=== PATIENT | female | born 1930 | race Caucasian/White ===

== ENCOUNTER 2018-02-10 19:43 | Inpatient (IN) | payer MEDICARE, OTHER ==
[2018-02-10] MEDS: LACTATED RINGER'S 1,000 ML IV (21:38)
[2018-02-10 21:41] LABS: ADD MAN DIFF? NO
[2018-02-10 21:43] LABS: BASOPHIL # 0.1 10^3/ul (0.0-0.1); BASOPHILS % 0.4 % (0.0-2.0); EOSINOPHILS % 0.2 % (0.0-7.0); HEMATOCRIT 38.2 % (37.0-47.0); HEMOGLOBIN 12.2 g/dl (12.0-16.0); LYMPHOCYTES # 1.9 10^3/ul (0.8-2.9); LYMPHOCYTES % 12.9 % (15.0-51.0); MEAN CORPUSCULAR HGB CONC 31.9 g/dl (32.0-37.0); MEAN PLATELET VOLUME 10.5 fl (7.4-10.4); MONOCYTES % 7.1 % (0.0-11.0); NEUTROPHIL # 11.4 10^3/ul (1.6-7.5); NEUTROPHILS % 78.8 % (39.0-77.0); PLATELET COUNT 352 10^3/UL (140-415); RED CELL DISTRIBUTION WIDTH 13.3 % (11.5-14.5)
[2018-02-10 21:43] LABS: WHITE BLOOD COUNT 14.5 10^3/ul (4.8-10.8)
[2018-02-10 21:47] LABS: INR 0.98; PARTIAL THROMBOPLASTIN TIME 26.1 Sec (25.0-35.0); PROTIME 13.1 Sec (11.9-14.9)
[2018-02-10 21:50] LABS: ALANINE AMINOTRANSFERASE 19 IU/L (13-69); ALBUMIN 3.5 g/dl (3.3-4.9); ALBUMIN/GLOBULIN RATIO 0.94; ALKALINE PHOSPHATASE 104 IU/L (42-121); ANION GAP 17 (8-16); ASPARTATE AMINO TRANSFERASE 31 IU/L (15-46); BILIRUBIN,INDIRECT 0.1 mg/dl (0-1.1); BILIRUBIN,TOTAL 0.1 mg/dl (0.2-1.3); BLOOD UREA NITROGEN 78 mg/dl (7-20); CALCIUM 9.6 mg/dl (8.4-10.2); CARBON DIOXIDE 29 mmol/L (21-31); CHLORIDE 102 mmol/L (97-110); CREATININE 2.54 mg/dl (0.44-1.00); GLUCOSE 142 mg/dl (70-220); LIPASE 159 U/L (23-300); POTASSIUM 3.6 mmol/L (3.5-5.1); SODIUM 144 mmol/L (135-144); TOTAL PROTEIN 7.2 g/dl (6.1-8.1)
[2018-02-10 22:21] LABS: ADD UMIC YES; UR ASCORBIC ACID NEGATIVE (NEGATIVE); UR BACTERIA FEW /HPF (NONE SEEN); UR BILIRUBIN (Dip) NEGATIVE (NEGATIVE); UR BLOOD (Dip) 2+ mg/dL (NEGATIVE); UR CLARITY CLOUDY (CLEAR); UR COLOR YELLOW (YELLOW); UR GLUCOSE (Dip) NEGATIVE (NEGATIVE); UR KETONES (Dip) NEGATIVE (NEGATIVE); UR LEUKOCYTE ESTERASE (Dip) 3+ Leu/ul (NEGATIVE); UR NITRITE (Dip) NEGATIVE (NEGATIVE); UR NONSQUAMOUS EPITHELIAL CELL 5 /HPF (NONE SEEN); UR RBC 2 /HPF (0-5); UR SPECIFIC GRAVITY (Dip) 1.015 (1.003-1.030); UR SQUAMOUS EPITHELIAL CELL FEW /HPF (FEW); UR TOTAL PROTEIN (Dip) 2+ mg/dl (NEGATIVE); UR UROBILINOGEN (Dip) NEGATIVE (NEGATIVE); UR WBC > 182 /HPF (0-5)
[2018-02-10] MEDS: SOD CHLORIDE 0.9% 1,000 ML IV (22:45)
[2018-02-10] MEDS: CEFEPIME 1GM/50 ML (PMX) 50 ML IVPB (22:45)
[2018-02-11 11:18] LABS: ADD MAN DIFF? NO
[2018-02-11 11:27] LABS: BASOPHILS % 0.3 % (0.0-2.0); EOSINOPHILS % 0.2 % (0.0-7.0); HEMATOCRIT 33.4 % (37.0-47.0); HEMOGLOBIN 10.5 g/dl (12.0-16.0); LYMPHOCYTES # 1.4 10^3/ul (0.8-2.9); MEAN CORPUSCULAR HEMOGLOBIN 28.8 pg (29.0-33.0); MEAN CORPUSCULAR HGB CONC 31.4 g/dl (32.0-37.0); MEAN CORPUSCULAR VOLUME 91.8 fl (82.0-101.0); MEAN PLATELET VOLUME 9.4 fl (7.4-10.4); MONOCYTE # 0.8 10^3/ul (0.3-0.9); MONOCYTES % 6.7 % (0.0-11.0); NEUTROPHILS % 81.2 % (39.0-77.0); PLATELET COUNT 287 10^3/UL (140-415); RED BLOOD COUNT 3.64 10^6/ul (4.20-5.40); RED CELL DISTRIBUTION WIDTH 13.3 % (11.5-14.5)
[2018-02-11 11:27] LABS: WHITE BLOOD COUNT 12.3 10^3/ul (4.8-10.8)
[2018-02-11 11:45] LABS: ANION GAP 17 (8-16); BLOOD UREA NITROGEN 69 mg/dl (7-20); CALCIUM 9.2 mg/dl (8.4-10.2); CARBON DIOXIDE 27 mmol/L (21-31); CHLORIDE 107 mmol/L (97-110); CREATININE 2.04 mg/dl (0.44-1.00); GLUCOSE 96 mg/dl (70-220); SODIUM 148 mmol/L (135-144)
[2018-02-11 11:47] LABS: CREATINE KINASE 23 IU/L (23-200)
[2018-02-11 11:55] LABS: POTASSIUM 2.9 mmol/L (3.5-5.1)
[2018-02-11 11:57] LABS: CK INDEX 18.7; CK-MB 4.31 ng/ml (0.0-2.4)
[2018-02-11 11:59] LABS: TROPONIN-I 0.258 ng/ml (0.000-0.120)
[2018-02-11] MEDS: POTASSIUM CHLORIDE (SR) 20 MEQ TAB PO (12:02)
[2018-02-11] MEDS: DEXTROSE 5%-0.45% NACL 1,000 ML IV ×2 (12:02→16:50)
[2018-02-11] MEDS: CEFTRIAXONE 1 GM/NS 50 ML IVPB (12:03)
[2018-02-11] MEDS: METOPROLOL 5 MG INJ IV (12:28)
[2018-02-11] MEDS: DILTIAZEM-D5W 125MG/125ML DRIP 125 ML IV (13:40)
[2018-02-11] MEDS: POTASSIUM CHLORIDE 50 ML IVPB ×2 (14:48→16:35)
[2018-02-11] MEDS ORDERED: ACETAMINOPHEN 650 MG SUPP PR (17:00)
[2018-02-11] MEDS ORDERED: MAGNESIUM HYDROXIDE 30ML CUP PO ×2 (17:00)
[2018-02-11] MEDS ORDERED: ACETAMINOPHEN 325 MG TAB PO ×2 (17:00)
[2018-02-11] MEDS ORDERED: DOCUSATE SODIUM 100 MG CAP PO (17:00)
[2018-02-11] MEDS ORDERED: NACL 0.9% 3 ML SYG IV (17:00)
[2018-02-11] MEDS: DOCUSATE SODIUM 100 MG CAP PO (21:05)
[2018-02-11] MEDS: METOPROLOL 25 MG TAB PO (21:06)
[2018-02-11] MEDS: PEG/ELECTROLYTES 4L BTL PO (21:11)
[2018-02-12 05:16] LABS: ADD MAN DIFF? NO
[2018-02-12 05:23] LABS: WHITE BLOOD COUNT 12.2 10^3/ul (4.8-10.8)
[2018-02-12 05:23] LABS: BASOPHILS % 0.3 % (0.0-2.0); EOSINOPHILS # 0.1 10^3/ul (0.0-0.5); EOSINOPHILS % 0.4 % (0.0-7.0); HEMATOCRIT 30.5 % (37.0-47.0); HEMOGLOBIN 9.5 g/dl (12.0-16.0); LYMPHOCYTES # 1.5 10^3/ul (0.8-2.9); LYMPHOCYTES % 12.3 % (15.0-51.0); MEAN CORPUSCULAR HEMOGLOBIN 28.9 pg (29.0-33.0); MEAN CORPUSCULAR HGB CONC 31.1 g/dl (32.0-37.0); MEAN CORPUSCULAR VOLUME 92.7 fl (82.0-101.0); MEAN PLATELET VOLUME 9.8 fl (7.4-10.4); MONOCYTE # 0.9 10^3/ul (0.3-0.9); MONOCYTES % 7.1 % (0.0-11.0); NEUTROPHIL # 9.6 10^3/ul (1.6-7.5); NEUTROPHILS % 79.1 % (39.0-77.0); PLATELET COUNT 261 10^3/UL (140-415); RED BLOOD COUNT 3.29 10^6/ul (4.20-5.40); RED CELL DISTRIBUTION WIDTH 13.6 % (11.5-14.5)
[2018-02-12] MEDS: DEXTROSE 5%-0.45% NACL 1,000 ML IV ×2 (05:30→23:51)
[2018-02-12 05:34] LABS: HEMOGLOBIN A1C 6.7 % (0-5.9)
[2018-02-12 05:52] LABS: ALANINE AMINOTRANSFERASE 18 IU/L (13-69); ALBUMIN 2.7 g/dl (3.3-4.9); ALBUMIN/GLOBULIN RATIO 0.87; ALKALINE PHOSPHATASE 75 IU/L (42-121); ANION GAP 11 (8-16); ASPARTATE AMINO TRANSFERASE 25 IU/L (15-46); BILIRUBIN,INDIRECT 0.1 mg/dl (0-1.1); BILIRUBIN,TOTAL 0.1 mg/dl (0.2-1.3); BLOOD UREA NITROGEN 60 mg/dl (7-20); CALCIUM 8.8 mg/dl (8.4-10.2); CARBON DIOXIDE 26 mmol/L (21-31); CHLORIDE 113 mmol/L (97-110); CREATININE 1.51 mg/dl (0.44-1.00); GLUCOSE 168 mg/dl (70-220); POTASSIUM 3.9 mmol/L (3.5-5.1); SODIUM 146 mmol/L (135-144); TOTAL PROTEIN 5.8 g/dl (6.1-8.1)
[2018-02-12] MEDS: LEVOTHYROXINE 25 MCG TAB PO (06:03)
[2018-02-12] MEDS ORDERED: CEFTRIAXONE 1 GM INJ IM (09:00)
[2018-02-12] MEDS: DOCUSATE SODIUM 100 MG CAP PO ×2 (09:19→20:55)
[2018-02-12] MEDS: MULTIVITAMINS THERAPEUTIC TAB PO (09:19)
[2018-02-12] MEDS: PANTOPRAZOLE 40 MG INJ IV (09:19)
[2018-02-12] MEDS: AMLODIPINE 5 MG TAB PO (09:19)
[2018-02-12] MEDS: METOPROLOL 25 MG TAB PO ×2 (09:20→20:55)
[2018-02-12] MEDS: CEFTRIAXONE 1 GM/NS 50 ML IVPB (12:01)
[2018-02-12] MEDS: DILTIAZEM-D5W 125MG/125ML DRIP 125 ML IV (15:47)
[2018-02-12] MEDS: BISACODYL (EC) 5 MG TAB PO (17:34)
[2018-02-13 04:56] LABS: ADD MAN DIFF? NO
[2018-02-13 05:07] LABS: WHITE BLOOD COUNT 12.8 10^3/ul (4.8-10.8)
[2018-02-13 05:07] LABS: BASOPHIL # 0.1 10^3/ul (0.0-0.1); BASOPHILS % 0.4 % (0.0-2.0); EOSINOPHILS # 0.1 10^3/ul (0.0-0.5); EOSINOPHILS % 0.6 % (0.0-7.0); HEMATOCRIT 28.6 % (37.0-47.0); HEMOGLOBIN 9.2 g/dl (12.0-16.0); LYMPHOCYTES # 1.5 10^3/ul (0.8-2.9); LYMPHOCYTES % 11.3 % (15.0-51.0); MEAN CORPUSCULAR HEMOGLOBIN 29.2 pg (29.0-33.0); MEAN CORPUSCULAR HGB CONC 32.2 g/dl (32.0-37.0); MEAN CORPUSCULAR VOLUME 90.8 fl (82.0-101.0); MEAN PLATELET VOLUME 9.9 fl (7.4-10.4); MONOCYTE # 0.9 10^3/ul (0.3-0.9); MONOCYTES % 6.9 % (0.0-11.0); NEUTROPHIL # 10.3 10^3/ul (1.6-7.5); NEUTROPHILS % 80.3 % (39.0-77.0); PLATELET COUNT 254 10^3/UL (140-415); RED BLOOD COUNT 3.15 10^6/ul (4.20-5.40); RED CELL DISTRIBUTION WIDTH 13.7 % (11.5-14.5)
[2018-02-13 05:24] LABS: MAGNESIUM 1.9 mg/dl (1.7-2.5)
[2018-02-13 05:24] LABS: PHOSPHORUS 2.4 mg/dl (2.5-4.9)
[2018-02-13 05:26] LABS: ANION GAP 13 (8-16); BLOOD UREA NITROGEN 44 mg/dl (7-20); CALCIUM 8.7 mg/dl (8.4-10.2); CARBON DIOXIDE 23 mmol/L (21-31); CHLORIDE 113 mmol/L (97-110); CREATININE 1.16 mg/dl (0.44-1.00); GLUCOSE 162 mg/dl (70-220); SODIUM 146 mmol/L (135-144)
[2018-02-13 05:33] LABS: POTASSIUM 2.8 mmol/L (3.5-5.1)
[2018-02-13] MEDS: PANTOPRAZOLE 40 MG INJ IV (06:10)
[2018-02-13] MEDS: POTASSIUM CHLORIDE 100 ML IVPB ×2 (06:48→08:52)
[2018-02-13] MEDS: LEVOTHYROXINE 25 MCG TAB PO (07:00)
[2018-02-13] MEDS: DOCUSATE SODIUM 100 MG CAP PO ×2 (08:25→22:35)
[2018-02-13] MEDS: METOPROLOL 25 MG TAB PO ×2 (08:26→22:35)
[2018-02-13] MEDS: MULTIVITAMINS THERAPEUTIC TAB PO (08:26)
[2018-02-13 11:10] LABS: POTASSIUM 3.9 mmol/L (3.5-5.1)
[2018-02-13] MEDS: PROPOFOL 20 ML (11:30)
[2018-02-13] MEDS: PHENYLephrine (100 MCG/ML) 5ML SYG (11:30)
[2018-02-13] MEDS: CEFTRIAXONE 1 GM/NS 50 ML IVPB (11:41)
[2018-02-13] MEDS: SOD PHOS MONO/DIBAS 250 MG TAB PO (12:52)
[2018-02-13] MEDS ORDERED: METOPROLOL 5 MG INJ IV (13:30)
[2018-02-13] MEDS: DEXTROSE 5%-0.45% NACL 1,000 ML IV (18:45)
[2018-02-14] MEDS: LEVOTHYROXINE 25 MCG TAB PO (06:42)
[2018-02-14 06:48] LABS: ADD MAN DIFF? NO
[2018-02-14 07:04] LABS: BASOPHILS % 0.4 % (0.0-2.0); EOSINOPHILS # 0.1 10^3/ul (0.0-0.5); EOSINOPHILS % 1.3 % (0.0-7.0); HEMATOCRIT 27.8 % (37.0-47.0); HEMOGLOBIN 8.7 g/dl (12.0-16.0); LYMPHOCYTES # 1.4 10^3/ul (0.8-2.9); LYMPHOCYTES % 15.5 % (15.0-51.0); MEAN CORPUSCULAR HEMOGLOBIN 29.3 pg (29.0-33.0); MEAN CORPUSCULAR HGB CONC 31.3 g/dl (32.0-37.0); MEAN CORPUSCULAR VOLUME 93.6 fl (82.0-101.0); MEAN PLATELET VOLUME 9.8 fl (7.4-10.4); MONOCYTE # 0.7 10^3/ul (0.3-0.9); NEUTROPHIL # 6.6 10^3/ul (1.6-7.5); NEUTROPHILS % 74.1 % (39.0-77.0); PLATELET COUNT 206 10^3/UL (140-415); RED BLOOD COUNT 2.97 10^6/ul (4.20-5.40)
[2018-02-14 07:04] LABS: WHITE BLOOD COUNT 8.9 10^3/ul (4.8-10.8)
[2018-02-14 07:37] LABS: PHOSPHORUS 2.5 mg/dl (2.5-4.9)
[2018-02-14 07:37] LABS: MAGNESIUM 1.8 mg/dl (1.7-2.5)
[2018-02-14 07:44] LABS: ANION GAP 8 (8-16); BLOOD UREA NITROGEN 30 mg/dl (7-20); CALCIUM 8.5 mg/dl (8.4-10.2); CARBON DIOXIDE 25 mmol/L (21-31); CHLORIDE 113 mmol/L (97-110); CREATININE 0.95 mg/dl (0.44-1.00); GLUCOSE 126 mg/dl (70-220); POTASSIUM 3.1 mmol/L (3.5-5.1); SODIUM 143 mmol/L (135-144)
[2018-02-14] MEDS: DOCUSATE SODIUM 100 MG CAP PO ×2 (08:06→20:41)
[2018-02-14] MEDS: METOPROLOL 25 MG TAB PO ×2 (08:06→20:45)
[2018-02-14] MEDS: MULTIVITAMINS THERAPEUTIC TAB PO (08:06)
[2018-02-14] MEDS: PANTOPRAZOLE 40 MG INJ IV (09:19)
[2018-02-14] MEDS: REGADENOSON 0.4 MG/5 ML SYG (11:48)
[2018-02-14] MEDS: BISACODYL 10 MG SUPP PR (12:33)
[2018-02-14] MEDS: POTASSIUM CHLORIDE (SR) 20 MEQ TAB PO (12:40)
[2018-02-14] MEDS: CEFTRIAXONE 1 GM/NS 50 ML IVPB (12:40)
[2018-02-14] MEDS: DEXTROSE 5%-0.45% NACL 1,000 ML IV (12:44)
[2018-02-14] MEDS: LUBIPROSTONE 24 MCG CAP PO (20:41)
[2018-02-15] MEDS: LEVOTHYROXINE 25 MCG TAB PO (05:25)
[2018-02-15] MEDS: PANTOPRAZOLE 40 MG INJ IV (05:25)
[2018-02-15 06:34] LABS: ADD MAN DIFF? NO
[2018-02-15 06:37] LABS: BASOPHILS % 0.3 % (0.0-2.0); EOSINOPHILS # 0.1 10^3/ul (0.0-0.5); EOSINOPHILS % 1.2 % (0.0-7.0); HEMATOCRIT 29.1 % (37.0-47.0); HEMOGLOBIN 8.9 g/dl (12.0-16.0); LYMPHOCYTES # 1.4 10^3/ul (0.8-2.9); LYMPHOCYTES % 15.3 % (15.0-51.0); MEAN CORPUSCULAR HEMOGLOBIN 28.8 pg (29.0-33.0); MEAN CORPUSCULAR HGB CONC 30.6 g/dl (32.0-37.0); MEAN CORPUSCULAR VOLUME 94.2 fl (82.0-101.0); MEAN PLATELET VOLUME 9.7 fl (7.4-10.4); MONOCYTE # 0.6 10^3/ul (0.3-0.9); MONOCYTES % 6.7 % (0.0-11.0); NEUTROPHIL # 6.8 10^3/ul (1.6-7.5); NEUTROPHILS % 75.7 % (39.0-77.0); PLATELET COUNT 196 10^3/UL (140-415); RED BLOOD COUNT 3.09 10^6/ul (4.20-5.40); RED CELL DISTRIBUTION WIDTH 14.2 % (11.5-14.5)
[2018-02-15 07:03] LABS: PHOSPHORUS 2.7 mg/dl (2.5-4.9)
[2018-02-15 07:03] LABS: MAGNESIUM 1.7 mg/dl (1.7-2.5)
[2018-02-15 07:07] LABS: ANION GAP 8 (8-16); BLOOD UREA NITROGEN 26 mg/dl (7-20); CALCIUM 8.5 mg/dl (8.4-10.2); CARBON DIOXIDE 25 mmol/L (21-31); CHLORIDE 113 mmol/L (97-110); CREATININE 1.05 mg/dl (0.44-1.00); GLUCOSE 107 mg/dl (70-220); POTASSIUM 4.1 mmol/L (3.5-5.1); SODIUM 142 mmol/L (135-144)
[2018-02-15] MEDS: MULTIVITAMINS THERAPEUTIC TAB PO (08:19)
[2018-02-15] MEDS: LUBIPROSTONE 24 MCG CAP PO ×2 (08:19→20:45)
[2018-02-15] MEDS: DOCUSATE SODIUM 100 MG CAP PO ×2 (08:19→20:45)
[2018-02-15] MEDS: METOPROLOL 25 MG TAB PO ×2 (08:19→20:46)
[2018-02-15] MEDS: POLYETHYLENE GLYCOL 17 GM PACKET PO (08:21)
[2018-02-15] MEDS: CEFTRIAXONE 1 GM/NS 50 ML IVPB (11:22)
[2018-02-16] MEDS: LEVOTHYROXINE 25 MCG TAB PO (06:09)
[2018-02-16] MEDS: PANTOPRAZOLE 40 MG INJ IV (06:09)
[2018-02-16 06:10] LABS: ADD MAN DIFF? NO
[2018-02-16 06:17] LABS: BASOPHILS % 0.4 % (0.0-2.0); EOSINOPHILS # 0.1 10^3/ul (0.0-0.5); EOSINOPHILS % 1.2 % (0.0-7.0); HEMATOCRIT 27.5 % (37.0-47.0); HEMOGLOBIN 8.6 g/dl (12.0-16.0); LYMPHOCYTES # 1.6 10^3/ul (0.8-2.9); LYMPHOCYTES % 16.8 % (15.0-51.0); MEAN CORPUSCULAR HEMOGLOBIN 28.9 pg (29.0-33.0); MEAN CORPUSCULAR HGB CONC 31.3 g/dl (32.0-37.0); MEAN CORPUSCULAR VOLUME 92.3 fl (82.0-101.0); MEAN PLATELET VOLUME 10.1 fl (7.4-10.4); MONOCYTE # 0.6 10^3/ul (0.3-0.9); MONOCYTES % 6.5 % (0.0-11.0); NEUTROPHIL # 7.1 10^3/ul (1.6-7.5); NEUTROPHILS % 74.6 % (39.0-77.0); PLATELET COUNT 188 10^3/UL (140-415); RED BLOOD COUNT 2.98 10^6/ul (4.20-5.40); RED CELL DISTRIBUTION WIDTH 14.4 % (11.5-14.5)
[2018-02-16 06:17] LABS: WHITE BLOOD COUNT 9.5 10^3/ul (4.8-10.8)
[2018-02-16] MEDS: DOCUSATE SODIUM 100 MG CAP PO ×2 (08:53→21:19)
[2018-02-16] MEDS: METOPROLOL (XL) 25 MG TAB PO ×2 (08:53→21:19)
[2018-02-16] MEDS: MULTIVITAMINS THERAPEUTIC TAB PO (08:53)
[2018-02-16] MEDS: LUBIPROSTONE 24 MCG CAP PO ×2 (08:53→21:19)
[2018-02-16] MEDS: POLYETHYLENE GLYCOL 17 GM PACKET PO (08:54)
[2018-02-16] MEDS: CEFTRIAXONE 1 GM/NS 50 ML IVPB (11:48)
[2018-02-16] MEDS ORDERED: VITAMIN A & D 5 GM OINT PACKET TOP (22:40)
[2018-02-17] MEDS: PANTOPRAZOLE 40 MG INJ IV (06:08)
[2018-02-17] MEDS: LEVOTHYROXINE 25 MCG TAB PO (06:08)
[2018-02-17 07:19] LABS: CANCER ANTIGEN 125 20.3 U/ml (0.0-35.0)
[2018-02-17 07:23] LABS: CANCER ANTIGEN 19-9 15.7 U/ml (0.0-37.0)
[2018-02-17] MEDS: DOCUSATE SODIUM 100 MG CAP PO ×2 (08:48→21:35)
[2018-02-17] MEDS: MULTIVITAMINS THERAPEUTIC TAB PO (08:48)
[2018-02-17] MEDS: LUBIPROSTONE 24 MCG CAP PO ×2 (08:48→21:35)
[2018-02-17] MEDS: POLYETHYLENE GLYCOL 17 GM PACKET PO (08:50)
[2018-02-17] MEDS: METOPROLOL (XL) 25 MG TAB PO ×2 (08:50→21:36)
[2018-02-17] MEDS: CEFTRIAXONE 1 GM/NS 50 ML IVPB (13:00)
[2018-02-17 13:18] LABS: ADD UMIC YES; UR ASCORBIC ACID 20 mg/dL (NEGATIVE); UR BACTERIA FEW /HPF (NONE SEEN); UR BILIRUBIN (Dip) NEGATIVE (NEGATIVE); UR BLOOD (Dip) NEGATIVE (NEGATIVE); UR CLARITY CLOUDY (CLEAR); UR COLOR YELLOW (YELLOW); UR GLUCOSE (Dip) NEGATIVE (NEGATIVE); UR HYPHAE YEAST MANY /HPF (NONE SEEN); UR KETONES (Dip) NEGATIVE (NEGATIVE); UR LEUKOCYTE ESTERASE (Dip) 2+ Leu/ul (NEGATIVE); UR MUCUS FEW /HPF (NONE SEEN); UR NITRITE (Dip) NEGATIVE (NEGATIVE); UR RBC 10 /HPF (0-5); UR SPECIFIC GRAVITY (Dip) 1.015 (1.003-1.030); UR TOTAL PROTEIN (Dip) 1+ mg/dl (NEGATIVE); UR UROBILINOGEN (Dip) NEGATIVE (NEGATIVE); UR WBC 41 /HPF (0-5)
[2018-02-17 14:36] LABS: CARCINOEMBRYONIC ANTIGEN 5.6 ng/ml (0.0-5.0)
[2018-02-17] MEDS: ASPIRIN 325 MG TAB PO (17:35)
[2018-02-18 05:16] LABS: ADD MAN DIFF? NO
[2018-02-18 05:19] LABS: BASOPHILS % 0.4 % (0.0-2.0); EOSINOPHILS # 0.1 10^3/ul (0.0-0.5); EOSINOPHILS % 1.3 % (0.0-7.0); HEMOGLOBIN 8.1 g/dl (12.0-16.0); LYMPHOCYTES # 1.3 10^3/ul (0.8-2.9); LYMPHOCYTES % 12.1 % (15.0-51.0); MEAN CORPUSCULAR HEMOGLOBIN 28.8 pg (29.0-33.0); MEAN CORPUSCULAR HGB CONC 31.2 g/dl (32.0-37.0); MEAN CORPUSCULAR VOLUME 92.5 fl (82.0-101.0); MONOCYTE # 0.8 10^3/ul (0.3-0.9); MONOCYTES % 7.8 % (0.0-11.0); NEUTROPHIL # 8.3 10^3/ul (1.6-7.5); NEUTROPHILS % 77.9 % (39.0-77.0); PLATELET COUNT 180 10^3/UL (140-415); RED BLOOD COUNT 2.81 10^6/ul (4.20-5.40); RED CELL DISTRIBUTION WIDTH 14.4 % (11.5-14.5)
[2018-02-18 05:19] LABS: WHITE BLOOD COUNT 10.6 10^3/ul (4.8-10.8)
[2018-02-18 05:45] LABS: ANION GAP 6 (8-16); BLOOD UREA NITROGEN 19 mg/dl (7-20); CALCIUM 8.3 mg/dl (8.4-10.2); CARBON DIOXIDE 28 mmol/L (21-31); CHLORIDE 111 mmol/L (97-110); CREATININE 0.82 mg/dl (0.44-1.00); GLUCOSE 100 mg/dl (70-220); POTASSIUM 3.8 mmol/L (3.5-5.1); SODIUM 141 mmol/L (135-144)
[2018-02-18] MEDS: PANTOPRAZOLE 40 MG INJ IV (06:06)
[2018-02-18] MEDS: LEVOTHYROXINE 25 MCG TAB PO (06:06)
[2018-02-18] MEDS: LUBIPROSTONE 24 MCG CAP PO ×2 (10:10→21:09)
[2018-02-18] MEDS: POLYETHYLENE GLYCOL 17 GM PACKET PO (10:11)
[2018-02-18] MEDS: METOPROLOL (XL) 25 MG TAB PO ×2 (10:11→21:10)
[2018-02-18] MEDS: DOCUSATE SODIUM 100 MG CAP PO ×2 (10:11→21:09)
[2018-02-18] MEDS: MULTIVITAMINS THERAPEUTIC TAB PO (10:11)
[2018-02-18] MEDS: ASPIRIN 325 MG TAB PO (10:11)
[2018-02-18] MEDS: CEFTRIAXONE 1 GM/NS 50 ML IVPB (12:50)
[2018-02-19] MEDS: LEVOTHYROXINE 25 MCG TAB PO (06:04)
[2018-02-19] MEDS: PANTOPRAZOLE 40 MG INJ IV (06:04)
[2018-02-19] MEDS: MULTIVITAMINS THERAPEUTIC TAB PO (09:12)
[2018-02-19] MEDS: DOCUSATE SODIUM 100 MG CAP PO ×2 (09:12→21:41)
[2018-02-19] MEDS: LUBIPROSTONE 24 MCG CAP PO ×2 (09:12→21:41)
[2018-02-19] MEDS: ASPIRIN 325 MG TAB PO (09:13)
[2018-02-19] MEDS: POLYETHYLENE GLYCOL 17 GM PACKET PO (09:13)
[2018-02-19] MEDS: METOPROLOL (XL) 25 MG TAB PO ×2 (09:13→21:41)
[2018-02-19] MEDS: CEFTRIAXONE 1 GM/NS 50 ML IVPB (12:04)
[2018-02-19 16:18] LABS: ADD MAN DIFF? NO
[2018-02-19 16:19] LABS: WHITE BLOOD COUNT 8.4 10^3/ul (4.8-10.8)
[2018-02-19 16:19] LABS: BASOPHILS % 0.4 % (0.0-2.0); EOSINOPHILS # 0.1 10^3/ul (0.0-0.5); EOSINOPHILS % 1.2 % (0.0-7.0); HEMATOCRIT 25.2 % (37.0-47.0); HEMOGLOBIN 7.8 g/dl (12.0-16.0); LYMPHOCYTES # 1.4 10^3/ul (0.8-2.9); LYMPHOCYTES % 16.7 % (15.0-51.0); MEAN CORPUSCULAR HEMOGLOBIN 28.7 pg (29.0-33.0); MEAN CORPUSCULAR VOLUME 92.6 fl (82.0-101.0); MEAN PLATELET VOLUME 10.1 fl (7.4-10.4); MONOCYTE # 0.7 10^3/ul (0.3-0.9); NEUTROPHIL # 6.1 10^3/ul (1.6-7.5); NEUTROPHILS % 72.7 % (39.0-77.0); PLATELET COUNT 187 10^3/UL (140-415); RED BLOOD COUNT 2.72 10^6/ul (4.20-5.40); RED CELL DISTRIBUTION WIDTH 14.6 % (11.5-14.5)
[2018-02-20] MEDS: LEVOTHYROXINE 25 MCG TAB PO (06:31)
[2018-02-20] MEDS: PANTOPRAZOLE 40 MG INJ IV ×2 (06:31→21:22)
[2018-02-20] MEDS: DOCUSATE SODIUM 100 MG CAP PO ×2 (09:12→21:22)
[2018-02-20] MEDS: ASPIRIN 325 MG TAB PO (09:12)
[2018-02-20] MEDS: MULTIVITAMINS THERAPEUTIC TAB PO (09:12)
[2018-02-20] MEDS: POLYETHYLENE GLYCOL 17 GM PACKET PO (09:12)
[2018-02-20] MEDS: LUBIPROSTONE 24 MCG CAP PO ×2 (09:12→21:22)
[2018-02-20] MEDS: METOPROLOL (XL) 25 MG TAB PO ×2 (09:13→21:22)
[2018-02-20 11:27] LABS: ADD MAN DIFF? NO
[2018-02-20 11:29] LABS: WHITE BLOOD COUNT 8.1 10^3/ul (4.8-10.8)
[2018-02-20 11:29] LABS: BASOPHIL # 0.1 10^3/ul (0.0-0.1); BASOPHILS % 0.7 % (0.0-2.0); EOSINOPHILS # 0.1 10^3/ul (0.0-0.5); EOSINOPHILS % 1.7 % (0.0-7.0); HEMATOCRIT 25.7 % (37.0-47.0); HEMOGLOBIN 7.9 g/dl (12.0-16.0); LYMPHOCYTES # 1.6 10^3/ul (0.8-2.9); LYMPHOCYTES % 20.3 % (15.0-51.0); MEAN CORPUSCULAR HEMOGLOBIN 28.6 pg (29.0-33.0); MEAN CORPUSCULAR HGB CONC 30.7 g/dl (32.0-37.0); MEAN CORPUSCULAR VOLUME 93.1 fl (82.0-101.0); MEAN PLATELET VOLUME 9.6 fl (7.4-10.4); MONOCYTE # 0.8 10^3/ul (0.3-0.9); MONOCYTES % 9.3 % (0.0-11.0); NEUTROPHIL # 5.5 10^3/ul (1.6-7.5); NEUTROPHILS % 67.5 % (39.0-77.0); PLATELET COUNT 198 10^3/UL (140-415); RED BLOOD COUNT 2.76 10^6/ul (4.20-5.40); RED CELL DISTRIBUTION WIDTH 14.8 % (11.5-14.5)
[2018-02-20 18:51] LABS: HEMATOCRIT 22.9 % (37.0-47.0); HEMOGLOBIN 7.2 g/dl (12.0-16.0)
[2018-02-21] MEDS: LEVOTHYROXINE 25 MCG TAB PO (06:15)
[2018-02-21 06:31] LABS: ADD MAN DIFF? NO
[2018-02-21 06:38] LABS: ABNORMAL IP MESSAGE 1; BASOPHIL # 0.1 10^3/ul (0.0-0.1); BASOPHILS % 0.7 % (0.0-2.0); EOSINOPHILS # 0.1 10^3/ul (0.0-0.5); EOSINOPHILS % 1.4 % (0.0-7.0); HEMATOCRIT 20.1 % (37.0-47.0); LYMPHOCYTES # 1.8 10^3/ul (0.8-2.9); LYMPHOCYTES % 21.3 % (15.0-51.0); MEAN CORPUSCULAR HEMOGLOBIN 28.7 pg (29.0-33.0); MEAN CORPUSCULAR HGB CONC 30.8 g/dl (32.0-37.0); MEAN CORPUSCULAR VOLUME 93.1 fl (82.0-101.0); MEAN PLATELET VOLUME 10.3 fl (7.4-10.4); MONOCYTE # 0.8 10^3/ul (0.3-0.9); MONOCYTES % 9.2 % (0.0-11.0); NEUTROPHIL # 5.6 10^3/ul (1.6-7.5); NEUTROPHILS % 66.5 % (39.0-77.0); PLATELET COUNT 187 10^3/UL (140-415); RED BLOOD COUNT 2.16 10^6/ul (4.20-5.40); RED CELL DISTRIBUTION WIDTH 15.1 % (11.5-14.5)
[2018-02-21 06:38] LABS: WHITE BLOOD COUNT 8.5 10^3/ul (4.8-10.8)
[2018-02-21 06:42] LABS: HEMOGLOBIN 6.2 g/dl (12.0-16.0); POSITIVE DIFF @See below
[2018-02-21 06:43] LABS: PATH REVIEW? YES
[2018-02-21 07:58] LABS: ANISOCYTOSIS 1+ (0-0); BAND NEUTROPHILS #M 0.1 10^3/ul (0.0-0.6); BAND NEUTROPHILS % (M) 2 % (0-4); BASOPHILS % (M) 1 % (0-2); BURR CELLS 2+ (0-0); EOSINOPHILS % (M) 1 % (0-7); LYMPHOCYTES #M 1.9 10^3/ul (0.8-2.9); LYMPHOCYTES % (M) 23 % (15-51); MICROCYTOSIS 1+ (0-0); MONOCYTES % (M) 1 % (0-11); PLATELET ESTIMATE NORMAL; POIKILOCYTOSIS 2+ (0-0); SEG NEUT #M 6.1 10^3/ul (1.6-7.5); SEGMENTED NEUTROPHILS (M) % 72 % (39-77); SMUDGE%M 12 % (0-0)
[2018-02-21] MEDS: LUBIPROSTONE 24 MCG CAP PO ×2 (09:06→23:14)
[2018-02-21] MEDS: MULTIVITAMINS THERAPEUTIC TAB PO (09:07)
[2018-02-21] MEDS: PANTOPRAZOLE 40 MG INJ IV ×2 (09:07→21:26)
[2018-02-21] MEDS: POLYETHYLENE GLYCOL 17 GM PACKET PO (09:07)
[2018-02-21] MEDS: DOCUSATE SODIUM 100 MG CAP PO ×2 (09:07→21:27)
[2018-02-21] MEDS: METOPROLOL (XL) 25 MG TAB PO ×2 (09:11→21:27)
[2018-02-21 16:59] LABS: IMMEDIATE SPIN CROSSMATCH 1 3
[2018-02-21] MEDS: BISACODYL (EC) 5 MG TAB PO ×2 (19:12→21:27)
[2018-02-21] MEDS: PEG/ELECTROLYTES 4L BTL PO ×2 (19:13)
[2018-02-21 22:26] LABS: HEMATOCRIT 27.8 % (37.0-47.0); HEMOGLOBIN 8.9 g/dl (12.0-16.0)
[2018-02-22 05:45] LABS: ADD MAN DIFF? NO
[2018-02-22 05:58] LABS: WHITE BLOOD COUNT 6.8 10^3/ul (4.8-10.8)
[2018-02-22 05:58] LABS: BASOPHIL # 0.1 10^3/ul (0.0-0.1); BASOPHILS % 1.2 % (0.0-2.0); EOSINOPHILS # 0.1 10^3/ul (0.0-0.5); EOSINOPHILS % 1.6 % (0.0-7.0); HEMATOCRIT 27.6 % (37.0-47.0); LYMPHOCYTES # 1.4 10^3/ul (0.8-2.9); MEAN CORPUSCULAR HEMOGLOBIN 29.4 pg (29.0-33.0); MEAN CORPUSCULAR HGB CONC 32.6 g/dl (32.0-37.0); MEAN CORPUSCULAR VOLUME 90.2 fl (82.0-101.0); MEAN PLATELET VOLUME 9.8 fl (7.4-10.4); MONOCYTE # 0.6 10^3/ul (0.3-0.9); MONOCYTES % 8.2 % (0.0-11.0); NEUTROPHIL # 4.6 10^3/ul (1.6-7.5); NEUTROPHILS % 67.1 % (39.0-77.0); PLATELET COUNT 185 10^3/UL (140-415); RED BLOOD COUNT 3.06 10^6/ul (4.20-5.40); RED CELL DISTRIBUTION WIDTH 14.9 % (11.5-14.5)
[2018-02-22 06:19] LABS: INR 0.99; PROTIME 13.2 Sec (11.9-14.9)
[2018-02-22 06:20] LABS: PARTIAL THROMBOPLASTIN TIME 27.6 Sec (25.0-35.0)
[2018-02-22] MEDS: LEVOTHYROXINE 25 MCG TAB PO (06:36)
[2018-02-22 06:57] LABS: ALANINE AMINOTRANSFERASE 30 IU/L (13-69); ALBUMIN 2.2 g/dl (3.3-4.9); ALBUMIN/GLOBULIN RATIO 0.81; ALKALINE PHOSPHATASE 70 IU/L (42-121); ANION GAP 8 (8-16); ASPARTATE AMINO TRANSFERASE 28 IU/L (15-46); BILIRUBIN,INDIRECT 0.3 mg/dl (0-1.1); BILIRUBIN,TOTAL 0.3 mg/dl (0.2-1.3); BLOOD UREA NITROGEN 25 mg/dl (7-20); CALCIUM 8.4 mg/dl (8.4-10.2); CARBON DIOXIDE 25 mmol/L (21-31); CHLORIDE 111 mmol/L (97-110); CREATININE 0.82 mg/dl (0.44-1.00); GLUCOSE 101 mg/dl (70-220); POTASSIUM 3.5 mmol/L (3.5-5.1); SODIUM 140 mmol/L (135-144); TOTAL PROTEIN 4.9 g/dl (6.1-8.1)
[2018-02-22] MEDS: FENTAnyl 50 MCG/ML VIAL (11:38)
[2018-02-22] MEDS: LIDOCAINE 100 MG SYRINGE (11:38)
[2018-02-22] MEDS: PROPOFOL 40 ML (11:38)
[2018-02-22] MEDS: POLYETHYLENE GLYCOL 17 GM PACKET PO (13:54)
[2018-02-22] MEDS: PANTOPRAZOLE 40 MG INJ IV ×2 (13:54→20:26)
[2018-02-22] MEDS: MULTIVITAMINS THERAPEUTIC TAB PO (13:55)
[2018-02-22] MEDS: LUBIPROSTONE 24 MCG CAP PO ×2 (13:55→20:26)
[2018-02-22] MEDS: METOPROLOL (XL) 25 MG TAB PO ×2 (13:55→20:26)
[2018-02-22] MEDS: DOCUSATE SODIUM 100 MG CAP PO ×2 (13:55→20:26)
[2018-02-23 06:05] LABS: ADD MAN DIFF? NO
[2018-02-23 06:08] LABS: BASOPHIL # 0.1 10^3/ul (0.0-0.1); BASOPHILS % 0.7 % (0.0-2.0); EOSINOPHILS # 0.1 10^3/ul (0.0-0.5); EOSINOPHILS % 1.3 % (0.0-7.0); HEMATOCRIT 25.6 % (37.0-47.0); HEMOGLOBIN 8.3 g/dl (12.0-16.0); LYMPHOCYTES # 1.6 10^3/ul (0.8-2.9); MEAN CORPUSCULAR HEMOGLOBIN 29.3 pg (29.0-33.0); MEAN CORPUSCULAR HGB CONC 32.4 g/dl (32.0-37.0); MEAN CORPUSCULAR VOLUME 90.5 fl (82.0-101.0); MONOCYTE # 0.7 10^3/ul (0.3-0.9); NEUTROPHIL # 5.2 10^3/ul (1.6-7.5); NEUTROPHILS % 67.3 % (39.0-77.0); PLATELET COUNT 178 10^3/UL (140-415); RED BLOOD COUNT 2.83 10^6/ul (4.20-5.40)
[2018-02-23 06:08] LABS: WHITE BLOOD COUNT 7.7 10^3/ul (4.8-10.8)
[2018-02-23] MEDS: LEVOTHYROXINE 25 MCG TAB PO (07:00)
[2018-02-23] MEDS: PANTOPRAZOLE 40 MG INJ IV ×2 (08:24→21:05)
[2018-02-23] MEDS: POLYETHYLENE GLYCOL 17 GM PACKET PO (08:24)
[2018-02-23] MEDS: METOPROLOL (XL) 25 MG TAB PO ×2 (08:24→21:00)
[2018-02-23] MEDS: MULTIVITAMINS THERAPEUTIC TAB PO (08:24)
[2018-02-23] MEDS: LUBIPROSTONE 24 MCG CAP PO ×2 (08:24→21:05)
[2018-02-23] MEDS: DOCUSATE SODIUM 100 MG CAP PO ×2 (08:24→21:05)
[2018-02-24] MEDS: LEVOTHYROXINE 25 MCG TAB PO (06:12)
[2018-02-24] MEDS: DOCUSATE SODIUM 100 MG CAP PO ×2 (08:42→21:10)
[2018-02-24] MEDS: PANTOPRAZOLE 40 MG INJ IV ×2 (08:42→21:11)
[2018-02-24] MEDS: LUBIPROSTONE 24 MCG CAP PO ×2 (08:42→21:10)
[2018-02-24] MEDS: POLYETHYLENE GLYCOL 17 GM PACKET PO (08:42)
[2018-02-24] MEDS: MULTIVITAMINS THERAPEUTIC TAB PO (08:42)
[2018-02-24] MEDS: METOPROLOL (XL) 25 MG TAB PO ×2 (08:43→21:00)
[2018-02-24] MEDS: BISACODYL (EC) 5 MG TAB PO (21:10)
[2018-02-24] MEDS: MAGNESIUM CITRATE 300 ML BTL PO (21:11)
[2018-02-25 06:39] LABS: ALANINE AMINOTRANSFERASE 23 IU/L (13-69); ALBUMIN 2.2 g/dl (3.3-4.9); ALBUMIN/GLOBULIN RATIO 0.91; ALKALINE PHOSPHATASE 73 IU/L (42-121); ANION GAP 5 (8-16); ASPARTATE AMINO TRANSFERASE 23 IU/L (15-46); BILIRUBIN,INDIRECT 0.1 mg/dl (0-1.1); BILIRUBIN,TOTAL 0.1 mg/dl (0.2-1.3); BLOOD UREA NITROGEN 16 mg/dl (7-20); CALCIUM 8.4 mg/dl (8.4-10.2); CARBON DIOXIDE 29 mmol/L (21-31); CHLORIDE 110 mmol/L (97-110); CREATININE 0.85 mg/dl (0.44-1.00); GLUCOSE 104 mg/dl (70-220); POTASSIUM 3.6 mmol/L (3.5-5.1); SODIUM 140 mmol/L (135-144); TOTAL PROTEIN 4.6 g/dl (6.1-8.1)
[2018-02-25] MEDS: LEVOTHYROXINE 25 MCG TAB PO (06:41)
[2018-02-25] MEDS: PANTOPRAZOLE 40 MG INJ IV ×2 (09:00→20:40)
[2018-02-25] MEDS: DOCUSATE SODIUM 100 MG CAP PO ×2 (09:00→20:40)
[2018-02-25] MEDS: LUBIPROSTONE 24 MCG CAP PO ×2 (09:00→20:40)
[2018-02-25] MEDS: MULTIVITAMINS THERAPEUTIC TAB PO (09:00)
[2018-02-25] MEDS: POLYETHYLENE GLYCOL 17 GM PACKET PO (09:00)
[2018-02-25] MEDS: METOPROLOL (XL) 25 MG TAB PO ×2 (09:02→20:41)
[2018-02-25] MEDS: BISACODYL (EC) 5 MG TAB PO (17:52)
[2018-02-25] MEDS: MAGNESIUM CITRATE 300 ML BTL PO (19:47)
[2018-02-26] MEDS: LEVOTHYROXINE 25 MCG TAB PO (06:25)
[2018-02-26] MEDS ORDERED: LIDOCAINE 2% (SDV) 5 ML INJ (07:00)
[2018-02-26] MEDS: METOPROLOL (XL) 25 MG TAB PO ×2 (08:06→20:28)
[2018-02-26] MEDS: MULTIVITAMINS THERAPEUTIC TAB PO (08:06)
[2018-02-26] MEDS: LUBIPROSTONE 24 MCG CAP PO ×2 (08:06→20:28)
[2018-02-26] MEDS: DOCUSATE SODIUM 100 MG CAP PO ×2 (08:06→20:28)
[2018-02-26] MEDS: POLYETHYLENE GLYCOL 17 GM PACKET PO (09:00)
[2018-02-26] MEDS: PANTOPRAZOLE 40 MG INJ IV ×2 (09:57→20:25)
[2018-02-26] MEDS ORDERED: PROPOFOL 20 ML (12:16)
[2018-02-26] MEDS ORDERED: ONDANSETRON 4 MG INJ IV (13:30)
== END 2018-02-26 20:50 | DRG 377 ==
LOC: 6WM 02-21 09:27 → 2NE 02-25 14:52 → E/R 19:43 → ICU 22:34 → PP2 02-15 22:55 → TEL 02-13 14:37
PROC: 0DB68ZX Excision of Stomach, Via Natural or Artificial Opening Endoscopic, Diagnostic (ICD-10-PCS; principal; 2018-02-13 10:50)
PROC: 0DJD8ZZ Inspection of Lower Intestinal Tract, Via Natural or Artificial Opening Endoscopic (ICD-10-PCS; 2018-02-13 10:50)
PROC: 30233N1 Transfusion of Nonautologous Red Blood Cells into Peripheral Vein, Percutaneous Approach (ICD-10-PCS; 2018-02-13 10:50)
PROC: 0DJD8ZZ Inspection of Lower Intestinal Tract, Via Natural or Artificial Opening Endoscopic (ICD-10-PCS; 2018-02-13 10:50)
DX: K92.2 Gastrointestinal hemorrhage, unspecified (principal); I21.4 Non-ST elevation (NSTEMI) myocardial infarction; N39.0 Urinary tract infection, site not specified; N17.9 Acute kidney failure, unspecified; E87.0 Hyperosmolality and hypernatremia; E44.0 Moderate protein-calorie malnutrition; Z68.1 Body mass index [BMI] 19.9 or less, adult; I48.91 Unspecified atrial fibrillation; D64.9 Anemia, unspecified; E87.6 Hypokalemia; E86.0 Dehydration; I10 Essential (primary) hypertension; E03.9 Hypothyroidism, unspecified; K20.9 Esophagitis, unspecified; K56.41 Fecal impaction; N93.9 Abnormal uterine and vaginal bleeding, unspecified; N83.201 Unspecified ovarian cyst, right side; R93.8 Abnormal findings on diagnostic imaging of other specified body structures; R97.0 Elevated carcinoembryonic antigen [CEA]; K29.60 Other gastritis without bleeding; K31.89 Other diseases of stomach and duodenum; B95.61 Methicillin susceptible Staphylococcus aureus infection as the cause of diseases classified elsewhere; K64.4 Residual hemorrhoidal skin tags
CPT/HCPCS: 36415; 36430; 71045; 74176; 76856; 78452; 80048; 80053; 81001; 82378; 82550; 82553; 83036; 83690; 83735; 84100; 84132; 84484; 85014; 85018; 85025; 85610; 85730; 86301; 86304; 86305; 86850; 86900; 86901; 86920; 87081; 87086; 88305; 88312; 93005; 93017; 93306; 97162; 97530; 99291-25